=== PATIENT | female | born 1985 | race African-American/Black ===

== ENCOUNTER 2017-09-12 11:13 | Day surgery (SDC) | payer OTHER ==
[2017-09-12 11:48] VITALS: BP 123/65; TEMP 98.2; BMI 32.9
--- NOTE | 2017-09-12 13:26 | PRG ---
DATE OF SERVICE: 09/12/2017 PRIMARY OB: Dr. Raciel Barbour. CHIEF COMPLAINT: Vaginal spotting. HISTORY OF PRESENT ILLNESS: The patient is a 32-year-old G5, P0 female with an intrauterine pregnan cy at 29 weeks who has been followed by Dr. Barbour with this . She reports that she had int ercourse last night and began having some bleeding afterwards that has predominantly been spotting t hat has since seemed to have resolved. The patient denies any uterine contractions. She denies any urinary urgency or frequency or dysuria. She denies any other leakage of fluid or discharge. PAST MEDICAL HISTORY: Significant for anemia and recurrent miscarriage. PAST SURGICAL HISTORY: Multiple D\T\Cs. ALLERGIES: No known drug allergies. MEDICATIONS: Currently just vitamins. SOCIAL HISTORY: Denies drug, alcohol or tobacco use. OB LABORATORY DATA: Unavailable at this time, she does report that she had a 3-hour GTT test this m orning. REVIEW OF SYSTEMS: The patient denies any recent illness, fever, fall, headache, chest pain, shortn ess of breath, nausea, vomiting, diarrhea, any new rashes, any hip problems or knee problems. She d oes report she gets muscle cramps easily in her legs. She also reports occasional constipation. PHYSICAL EXAMINATION: VITAL SIGNS: Blood pressure 123/65, heart rate of 107, respiratory rate 18. GENERAL: She appears to be in no acute distress. She is alert and oriented, and cooperative and pl easant to interact with. HEENT: Normocephalic, atraumatic. LUNGS: Clear to auscultation bilaterally. HEART: Regular rate and rhythm. ABDOMEN: Soft, nontender. She has no suprapubic tenderness to palpation. She has no CVA tendernes s or other back tenderness. She has no SI joint tenderness to palpation. EXTREMITIES: Nontender, nonedematous. PELVIC: Vulva is without masses, lesions or erythema. There is no staining or discharge at the int roitus. SPECULUM EXAM: Vagina is moist. Cervix is easily identified, visibly closed with cervical mucus, a ppears normal without any blood staining or clot. There is no unusual erythema or lesions on the ce rvix itself. On digital exam, cervix is closed. heart tracing performed for vaginal bleeding in , interpreted by Dr. Bhatti. Baseli ne is in the 150s with moderate long-term variability, positive accelerations, no decelerations, and no contractions visible on the monitor. ASSESSMENT AND PLAN: The patient is a 32-year-old G5, P0 female with an intrauterine at 2 9 weeks and 2 days here for vaginal spotting since intercourse has now resolved. The patient has no evidence of labor or infection. Reassurance has been given to the patient. Fetus has a reassuring heart tracing for gestational age. The patient will be discharged home. She has an appointm ent to follow up with Dr. Barbour on 09/25/2017. The patient has been given labor precautions .
== END 2017-09-12 12:25 | disposition home or self-care (01) ==
LOC: L&D/OP 11:13
PROVIDERS: ATTEND Obstetrics & Gynecology
DX: O26.853 Spotting complicating pregnancy, third trimester (principal); Z88.5 Allergy status to narcotic agent; Z88.8 Allergy status to other drugs, medicaments and biological substances; Z79.82 Long term (current) use of aspirin; Z79.899 Other long term (current) drug therapy; Z3A.29 29 weeks gestation of pregnancy
CPT/HCPCS: 59025

== ENCOUNTER 2018-10-28 08:40 | Outpatient (CLI) | payer OTHER ==
--- NOTE | 2018-10-28 11:21 | ULT ---
HEPATIC DOPPLER ULTRASOUND: HISTORY: Elevated liver enzymes (790.4), R74.0. Constipation. COMPARISON: None. TECHNIQUE: Real-time gillespie-scale color Doppler and spectral analysis of the liver was performed. FINDINGS: The hepatic echotexture is normal. The visualized portion of the right kidney is unremarkable. The right and left portal veins are patent. There is antegrade flow with normal phasicity. The hepatic veins have normal phasicity and flow direction. The common bile duct measures 4 mm, normal. The spleen measures 9.1 cm in length. The gallbladder is normal. IMPRESSION: Normal examination. POS: [facility]
== END 2018-10-28 08:41 | disposition home or self-care (01) ==
LOC: BICULT 08:40
PROVIDERS: ATTEND Internal Medicine Gastroenterology
DX: K59.00 Constipation, unspecified (principal); R74.8 Abnormal levels of other serum enzymes
CPT/HCPCS: 76705